=== PATIENT | male | born 1960 | race Hispanic/Latino ===

== ENCOUNTER 2018-10-20 08:44 | Outpatient (CLI) | payer BC ==
--- NOTE | 2018-10-20 10:25 | ULT ---
ULTRASOUND CAROTID DOPPLER STANDARD: HISTORY: Left posterior cerebral arterial occlusion. COMPARISON: None. TECHNIQUE: Real-time, kerr scale, color Doppler, and spectral analysis of the extracranial carotid and vertebral arteries was performed. FINDINGS: Antegrade flow to both vertebral arteries. No elevated peak systolic velocities within the internal carotid arteries. Right ICA/CCA ratio is 0.64 and left ICA/CCA ratio is 0.80. IMPRESSION: No hemodynamically significant stenosis. POS: JACK
== END 2018-10-20 08:45 | disposition home or self-care (01) ==
LOC: SCSULT 08:44
PROVIDERS: ATTEND Psychiatry & Neurology Neurology
DX: I66.22 Occlusion and stenosis of left posterior cerebral artery (principal)
CPT/HCPCS: 93880

== ENCOUNTER 2018-11-05 12:33 | Outpatient (CLI) | payer BC | END 2018-11-05 12:34 | disposition home or self-care (01) | LOC: ULT 12:33 | PROVIDERS: ATTEND Psychiatry & Neurology Neurology | DX: I66.22 Occlusion and stenosis of left posterior cerebral artery (principal); I08.1 Rheumatic disorders of both mitral and tricuspid valves | CPT/HCPCS: 93306 ==